=== PATIENT | female | born 1995 | race Caucasian/White ===

== ENCOUNTER 2019-04-24 14:30 | Emergency (ER) | payer OTHER ==
[2019-04-24 14:35] VITALS: BP 132/83; PULSE 97; RESP 16; TEMP 99
--- NOTE | 2019-04-24 15:32 | ED ---
Skin/Abscess/FB HPI - General Chief complaint: Needlestick/Exposure Stated complaint: [facility] - needlestick Time Seen by Provider: 04/24/19 14:54 Source: patient Mode of arrival: ambulatory Limitations: no limitations - History of Present Illness Initial comments: Patient is a 23-year-old female presenting to the emergency Department with complaints of a needlestick injury that happened prior to arrival. 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 Patient states she hit her left thumb with the needle and did notice blood from the wound. Patient did wash her hands right away. Patient denies fever, chills. Patient has no other complaints at this time. - Related Data Previous Rx's Medication Instructions Recorded Amoxicillin/Potassium Clav 1 each PO Q12HR #20 tab 02/03/15 [Augmentin 875-125 Tablet] Hydrocodone/Acetaminophen [[place] 1 each PO Q6HR PRN #20 tab 02/03/15 5-325] Ibuprofen [Motrin] 600 mg PO Q8HR PRN #30 tab 02/03/15 Allergies Allergy/AdvReac Type Severity Reaction Status Date / Time No Known Allergies Allergy Verified 04/24/19 14:35 Review of Systems ROS Statement: Those systems with pertinent positive or pertinent negative responses have been documented in the HPI. ROS Other: All systems not noted in ROS Statement are negative. Past Medical History Past Medical History: No Reported History History of Any Multi-Drug Resistant Organisms: None Reported Past Surgical History: Hernia Repair Past Psychological History: No Psychological Hx Reported Smoking Status: Never smoker Past Alcohol Use History: Occasional Past Drug Use History: None Reported General Exam - General Exam Comments Initial Comments: GENERAL: Well-appearing, well-nourished and in no acute distress. HEAD: Atraumatic, normocephalic. EYES: Pupils equal round and reactive to light, extraocular movements intact, sclera anicteric, conjunctiva are normal. ENT: TMs normal, nares patent, oropharynx clear without exudates. Moist mucous membranes. NECK: Normal range of motion, supple without lymphadenopathy or JVD. LUNGS: Breath sounds clear to auscultation bilaterally and equal. No wheezes rales or rhonchi. HEART: Regular rate and rhythm without murmurs, rubs or gallops. ABDOMEN: Soft, nontender, normoactive bowel sounds. No guarding, no rebound. No masses appreciated. : Deferred EXTREMITIES: Normal range of motion, no pitting or edema. No clubbing or cyanosis. NEUROLOGICAL: Cranial nerves II through XII grossly intact. Normal speech, normal gait. PSYCH: Normal mood, normal affect. SKIN: Warm, Dry, normal turgor, no rashes. There is a small puncture wound from a needle on the palmar aspect of the left thumb. No erythema or edema surrounding the wound. Limitations: no limitations Course Vital Signs 04/24/19 14:33 Temperature 99 F Pulse Rate 97 Respiratory 16 Rate Blood Pressure 132/83 O2 Sat by Pulse 98 Oximetry Medical Decision Making - Medical Decision Making Patient is a 23-year-old female with complaints of a needle stick injury that happened prior to arrival. 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 Patient has a small needlestick puncture wound on the palmar aspect of the left thumb. Patient's blood work was collected. The source was identified and blood will be tested. Patient is stable for discharge at this time. Return parameters were discussed with the patient she verbalized understanding. Patient declined HIV prophylaxis at this time. Disposition Clinical Impression: Needlestick injury of finger of left hand Disposition: HOME SELF-CARE Condition: Stable Instructions (If sedation given, give patient instructions): Needle Stick Injuries (ED) Additional Instructions: Please return to the Emergency Department if symptoms worsen or any other concerns. Is patient prescribed a controlled substance at d/c from ED?: No Referrals: None,Stated [Primary Care Provider] - 1-2 days
[2019-04-26 14:16] LABS: Hepatitis B Surface Antigen Non-Reactive; Hepatitis C IgG Antibody Non-Reactive
[2019-04-26 14:17] LABS: Hepatitis B Surface AB- Quant 3.7; Hepatitis B Surface Antibody Non-Reactive
[2019-04-26 14:19] LABS: HIV 1 AB Non-Reactive; HIV 2 AB Non-Reactive; HIV AB P24 Non-Reactive; HIV P24 AG Non-Reactive
== END 2019-04-24 15:40 | disposition home or self-care (01) ==
LOC: EC 14:30
DX: S61.032A Puncture wound without foreign body of left thumb without damage to nail, initial encounter (principal); Z77.21 Contact with and (suspected) exposure to potentially hazardous body fluids; W46.0XXA Contact with hypodermic needle, initial encounter; Y92.69 Other specified industrial and construction area as the place of occurrence of the external cause; Y99.0 Civilian activity done for income or pay
CPT/HCPCS: 36415; 86706; 86803; 87340; 87390; 99283